=== PATIENT | female | born 2000 | race Caucasian/White ===

== ENCOUNTER 2024-07-14 18:06 | Emergency (ER) | payer OTHER ==
[2024-07-14 18:33] VITALS: BP 120/66; PULSE 87; RESP 18; TEMP 99.1; BMI 23.0
[2024-07-14] MEDS ORDERED: IBUPROFEN 600 MG TABLET (FP) PO ONE (18:59)
[2024-07-14] MEDS ORDERED: DEXAMETHASONE 4 MG TABLET (FP) ONE (19:00)
[2024-07-14] MEDS: DEXAMETHASONE 4 MG TABLET (FP) PO STA (19:10)
[2024-07-14] MEDS: IBUPROFEN 600 MG TABLET (FP) PO ONE (19:10)
[2024-07-14 20:34] LABS: THROAT:GRP A STREP NOT DETECTED (NOTDETECTED)
== END 2024-07-14 19:50 | disposition home or self-care (01) ==
LOC: FER 18:06
DX: J02.9 Acute pharyngitis, unspecified (principal); J06.9 Acute upper respiratory infection, unspecified; R05.9 Cough, unspecified; R50.9 Fever, unspecified; Z20.822 Contact with and (suspected) exposure to COVID-19
CPT/HCPCS: 0241U-QW; 87651; 99283-25